=== PATIENT | male | born 1990 | race Caucasian/White ===

== ENCOUNTER 2016-10-27 19:17 | Emergency (ER) | payer BC ==
[2016-10-27] MEDS ORDERED: BACTRIM DS TAB1 EACH PO (20:14)
== END 2016-10-27 20:22 | disposition home or self-care (01) ==
LOC: ED 19:17
DX: L03.115 Cellulitis of right lower limb (principal); S81.831A Puncture wound without foreign body, right lower leg, initial encounter; W31.89XA Contact with other specified machinery, initial encounter; Y93.89 Activity, other specified; Y92.008 Other place in unspecified non-institutional (private) residence as the place of occurrence of the external cause
CPT/HCPCS: 90715; A4550